=== PATIENT | male | born 1970 | race Caucasian/White ===

== ENCOUNTER 2023-06-22 13:21 | Inpatient (IN) | payer OTHER ==
[2023-06-22 14:22] VITALS: BMI 32.8
[2023-06-22] MEDS ORDERED: ACETAMINOPHEN 325 MG TABLET (FP) PO PRN (14:56)
[2023-06-22] MEDS ORDERED: MAGNESIUM HYDROX 2400MG/30ML ORAL SUSPENSION 30 ML CUP PO PRN (14:56)
[2023-06-22] MEDS ORDERED: BISMUTH SUBSALICYLATE 524 MG/30 ML PO PRN (14:56)
[2023-06-22] MEDS ORDERED: NALOXONE HCL 0.4 MG/ML VIAL IM PRN (14:56)
[2023-06-22] MEDS ORDERED: IBUPROFEN 400 MG TABLET (FP) PO PRN (14:56)
[2023-06-22] MEDS ORDERED: BENZONATATE 200 MG CAPSULE PO PRN (14:56)
[2023-06-22] MEDS ORDERED: BENZOCAINE/MENTHOL (CHLORASEPTIC ) LOZENGE MM PRN (14:56)
[2023-06-22] MEDS ORDERED: MAG HYDROX/AL HYDROX/SIMETH 30 ML UNIT-DOSE CUP PO PRN (14:56)
[2023-06-22] MEDS ORDERED: DICYCLOMINE HCL 10 MG CAPSULE PO PRN (14:56)
[2023-06-22] MEDS ORDERED: guaiFENesin 600 MG TABLET.ER (FP) PO PRN (14:56)
[2023-06-22] MEDS ORDERED: ONDANSETRON *ODT* 4 MG TABLET SL PRN (14:56)
[2023-06-22] MEDS ORDERED: POLYETHYLENE GLYCOL (HEALTHYLAX) 3350 17 GM PACKET PO PRN (14:56)
[2023-06-22] MEDS ORDERED: NALOXONE HCL (KLOXXADO) 8 MG SPRAY NS PRN (14:56)
[2023-06-22] MEDS ORDERED: LOPERAMIDE HCL 2 MG CAPSULE PO PRN (14:56)
[2023-06-22] MEDS: IBUPROFEN 600 MG TABLET (FP) PO PRN (17:42)
[2023-06-22] MEDS: hydrOXYzine PAMOATE 25 MG CAPSULE (FP) PO PRN (17:43)
[2023-06-22] MEDS: PRENATAL VITAMINS W/ FOLIC ACID TABLET (FP) PO SCH (17:49)
[2023-06-22] MEDS: NICOTINE 21 MG/24 HOURS TOPICAL PATCH TD SCH (17:49)
[2023-06-22] MEDS: ALBUTEROL SO4 HFA INHALER IH PRN (18:15)
[2023-06-22] MEDS: THIAMINE 100 MG TABLET PO SCH (22:40)
[2023-06-22] MEDS: MELATONIN 5 MG TABLETS PO SCH (22:40)
[2023-06-23] MEDS ORDERED: chlordiazePOXIDE HCL 25 MG CAPSULE PO PRN (09:35)
[2023-06-23] MEDS: chlordiazePOXIDE HCL 25 MG CAPSULE PO SCH (11:04)
[2023-06-23] MEDS: HYDROCORTISONE 2.5% TOPICAL CREAM 30 GM TUBE TP SCH (23:16)
[2023-06-23] MEDS: traZODone HCL 50 MG TABLET (FP) PO SCH (23:16)
[2023-06-24] MEDS: chlordiazePOXIDE HCL 25 MG CAPSULE PO SCH (05:50)
[2023-06-24] MEDS: cloNIDine HCL 0.1 MG TABLET PO ONE (11:31)
[2023-06-24 13:56] LABS: HEMATOCRIT 41.3 % (35.4-49); HEMOGLOBIN 13.1 GM/dL (11.7-16.9); MCH 22.2 pg (25.7-33.7); MCHC 31.6 g/dl (32.0-35.9); MEAN PLT VOLUME 9.3 fl (7.5-11.1); PLATELET COUNT 184 10^3/uL (134-434); RDW 17.7 % (11.9-15.9); WHITE BLOOD COUNT 8.6 K/mm3 (4.0-10.0)
[2023-06-24 13:59] LABS: POTASSIUM 4.1 mmol/L (3.5-5.1)
[2023-06-24 14:13] LABS: ALBUMIN 3.6 g/dl (3.4-5.0)
[2023-06-24 14:16] LABS: BLOOD UREA NITROGEN 18.6 mg/dL (7-18)
[2023-06-24 14:17] LABS: CREATININE 1.5 mg/dL (0.55-1.3)
[2023-06-24 14:18] LABS: BILIRUBIN,TOTAL 0.6 mg/dL (0.2-1)
[2023-06-24 14:19] LABS: TOT PROT 6.8 g/dl (6.4-8.2)
[2023-06-24] MEDS: FAMOTIDINE 20 MG TABLET PO SCH ×2 (15:40→15:41)
[2023-06-24] MEDS: NIFEdipine E.R 60 MG TABLET PO SCH ×2 (15:40→15:41)
[2023-06-24] MEDS: hydrALAZINE HCL 50 MG TABLET (FP) PO SCH ×3 (15:41→19:15)
[2023-06-24] MEDS: BUDESONIDE/FORMETEROL FUMARATE 160/4.5 mcg INHALER IH SCH (23:08)
[2023-06-25] MEDS ORDERED: chlordiazePOXIDE HCL 10 MG CAPSULE PO PRN
[2023-06-25] MEDS: chlordiazePOXIDE HCL 10 MG CAPSULE PO SCH (06:00)
[2023-06-25] MEDS: diazePAM 5 MG TABLET PO ONE ×3 (11:14→22:13)
[2023-06-25] MEDS ORDERED: diazePAM 5 MG TABLET PO SCH (22:00)
[2023-06-26] MEDS ORDERED: chlordiazePOXIDE HCL 10 MG CAPSULE PO SCH (05:00)
[2023-06-26] MEDS: diazePAM 5 MG TABLET PO ONE ×3 (05:55→15:06)
[2023-06-26] MEDS: METHOCARBAMOL 500 MG TABLET PO PRN (18:04)
[2023-06-27] MEDS ORDERED: chlordiazePOXIDE HCL 10 MG CAPSULE PO ONE (05:00)
[2023-06-27] MEDS: diazePAM 5 MG TABLET PO ONE (06:11)
[2023-06-27 06:31] VITALS: RESP 17
[2023-06-27 09:45] VITALS: BP 148/96; PULSE 86; TEMP 97.3
== END 2023-06-27 10:58 | disposition home or self-care (01) | DRG 774 ==
LOC: YASAS 13:21 → Y6N 17:01
PROVIDERS: ADMIT Allergy & Immunology; ATTEND Surgery
PROC: HZ2ZZZZ Detoxification Services for Substance Abuse Treatment (ICD-10-PCS; principal; 2023-06-22)
DX: F10.230 Alcohol dependence with withdrawal, uncomplicated (principal); F14.20 Cocaine dependence, uncomplicated; F12.20 Cannabis dependence, uncomplicated; F17.210 Nicotine dependence, cigarettes, uncomplicated; F19.282 Other psychoactive substance dependence with psychoactive substance-induced sleep disorder; F19.24 Other psychoactive substance dependence with psychoactive substance-induced mood disorder; F43.10 Post-traumatic stress disorder, unspecified; I25.10 Atherosclerotic heart disease of native coronary artery without angina pectoris; I10 Essential (primary) hypertension; Z95.1 Presence of aortocoronary bypass graft; Z95.2 Presence of prosthetic heart valve; K21.9 Gastro-esophageal reflux disease without esophagitis; R73.9 Hyperglycemia, unspecified; Z89.432 Acquired absence of left foot; Z89.431 Acquired absence of right foot; Z89.022 Acquired absence of left finger(s); Z56.0 Unemployment, unspecified; Z59.01 Sheltered homelessness
CPT/HCPCS: 36415; 80053; 80305; 80307; 82962; 85027; 86780; 93005; 93010